=== PATIENT | male | born 1990 | race Caucasian/White ===

== ENCOUNTER → 2016-11-03 | Outpatient (REF) ==
[~2016-11-03] MED LIST: NO HOME MEDICATIONS; PERCOCET 325 MG1 TA2 PO
== END ==
LOC: WSOH 15:30
DX: Z13.9 Encounter for screening, unspecified (principal)

== ENCOUNTER 2018-12-30 05:53 | Emergency (ER) | payer OTHER ==
[~2018-12-30] VITALS: Ht 177.8 cm; Wt 113.6 kg
[2018-12-30 05:58] VITALS: BP 154/102; PULSE 80; TEMP 97.8
== END 2018-12-30 07:28 | disposition home or self-care (01) ==
LOC: COL.ER 05:53
DX: S61.411A Laceration without foreign body of right hand, initial encounter (principal); S43.401A Unspecified sprain of right shoulder joint, initial encounter; Y92.59 Other trade areas as the place of occurrence of the external cause; W00.0XXA Fall on same level due to ice and snow, initial encounter

== ENCOUNTER 2019-01-10 14:47 | Emergency (ER) | payer OTHER ==
[2019-01-10 14:53] VITALS: BP 141/87; PULSE 82; TEMP 98.2
== END 2019-01-10 14:57 | disposition home or self-care (01) ==
LOC: COL.ER 14:47
DX: S61.411D Laceration without foreign body of right hand, subsequent encounter (principal); X58.XXXD Exposure to other specified factors, subsequent encounter

== ENCOUNTER 2019-01-15 02:26 | Emergency (ER) | payer OTHER ==
[~2019-01-15] VITALS: Ht 177.8 cm; Wt 111.4 kg
[2019-01-15 02:28] VITALS: TEMP 98
[2019-01-15] MEDS ORDERED: CLEOCIN HCL300 MG PO (02:53)
[2019-01-15] MEDS ORDERED: NORCO 325 MG-51 TAB PO (02:53)
[2019-01-15 03:12] VITALS: BP 148/105; PULSE 78
== END 2019-01-15 03:31 | disposition home or self-care (01) ==
LOC: COL.ER 02:26
DX: K02.9 Dental caries, unspecified (principal); I10 Essential (primary) hypertension
CPT/HCPCS: J1885

== ENCOUNTER 2019-01-20 08:53 | Emergency (ER) | payer OTHER ==
[~2019-01-20] VITALS: Ht 177.8 cm; Wt 114.2 kg
[~2019-01-20 08:53] MED LIST changes: +CLEOCIN HCL300 MG PO; +NORCO 325 MG-51 TAB PO
[2019-01-20 10:16] VITALS: BP 128/82; PULSE 110; TEMP 97.5
== END 2019-01-20 10:16 | disposition home or self-care (01) ==
LOC: COL.ER 08:53
DX: K29.70 Gastritis, unspecified, without bleeding (principal); F17.210 Nicotine dependence, cigarettes, uncomplicated
CPT/HCPCS: J2405

== ENCOUNTER 2019-08-10 20:08 | Emergency (ER) | payer OTHER ==
[~2019-08-10] VITALS: Ht 177.8 cm; Wt 109.1 kg
[2019-08-10 20:11] VITALS: BP 160/77
[2019-08-10] MEDS ORDERED: TYLENOL 500MG500 MG PO (20:23)
[2019-08-10] MEDS ORDERED: MUCINEX 60600 MG/TA1 PO (20:23)
[2019-08-10 21:37] VITALS: TEMP 97.6
[2019-08-10] MEDS ORDERED: AMOXICILLIN 8751 TAB PO (21:50)
[2019-08-10 22:40] VITALS: PULSE 71
== END 2019-08-10 22:40 | disposition home or self-care (01) ==
LOC: COL.ER 20:08
DX: J06.9 Acute upper respiratory infection, unspecified (principal); H66.91 Otitis media, unspecified, right ear; H10.9 Unspecified conjunctivitis; Z87.891 Personal history of nicotine dependence

== ENCOUNTER 2020-11-02 14:21 | Emergency (ER) | payer OTHER ==
[~2020-11-02] VITALS: Ht 177.8 cm; Wt 109.1 kg
[~2020-11-02 14:21] MED LIST changes: +AMOXICILLIN 8751 TAB PO; +MUCINEX 60600 MG/TA1 PO; +TYLENOL 500MG500 MG PO
[2020-11-02 14:27] VITALS: TEMP 98.3
[2020-11-02 15:46] LABS: COLLECTION METHOD CLEAN CATCH
[2020-11-02 15:52] LABS: BASO # 0.1 (0.0-0.2); BASO % 0.4 % (0.0-2.0); EOS # 0.7 (0.0-0.7); EOS % 5.3 % (0-4.0); GRAN # 8.5 (1.4-6.5); GRAN % 63.5 % (42.2-75.2); HEMATOCRIT 46.5 % (42.0-52.0); LYMPH # 3.2 (1.2-3.4); LYMPH % 23.7 % (20.0-51.0); MEAN CELL VOLUME 86 fl (80.0-100.0); MEAN CORPUSCULAR HEMOGLOBIN 30 pg (27.0-31.0); MEAN CORPUSCULAR HGB CONC 34 g/dl (33.0-37.0); MONO # 0.9 (0.1-0.6); MONO % 6.4 % (1.7-9.3); PLATELET COUNT 300 K/mm3 (130-400); RED BLOOD COUNT 5.39 M/mm3 (4.20-5.60)
[2020-11-02 15:55] LABS: MUCOUS Present /lpf; PH 6 (5-8); SQUAMOUS EPITHELIAL None Seen /hpf; URINE APPEARANCE Clear; URINE BACTERIA None Seen /hpf; URINE BILIRUBIN Negative (NEGATIVE); URINE BLOOD Negative (NEGATIVE); URINE COLOR Yellow; URINE GLUCOSE Negative (NEGATIVE); URINE KETONE Negative (NEGATIVE); URINE LEUKOCYTE ESTERASE Negative (NEGATIVE); URINE NITRATE Negative (NEGATIVE); URINE PROTEIN(semi-quant) Negative (NEGATIVE); URINE RBC 0-2 /hpf; URINE UROBILINOGEN >=4.0 mg/dL (NEGATIVE)
[2020-11-02 16:08] LABS: ALBUMIN 4.5 gm/dL (3.5-5.0); BILIRUBIN,TOTAL 0.5 mg/dL (0.0-1.0); C-REACTIVE PROTEIN 1.8 mg/dL (0.0-0.9); CALCIUM 9.2 mg/dL (8.4-10.2); CREATININE, serum 1.05 (0.66-1.25); POTASSIUM 3.9 mmol/L (3.4-5.0); TOTAL PROTEIN 7.9 gm/dL (6.4-8.2)
[2020-11-02] MEDS ORDERED: NORCO 325 MG-51 TAB PO (17:33)
[2020-11-02 17:50] VITALS: BP 132/67; PULSE 85
== END 2020-11-02 17:50 | disposition home or self-care (01) ==
LOC: COL.ER 14:21
PROVIDERS: Nurse Practitioner
DX: K55.069 Acute infarction of intestine, part and extent unspecified (principal); Z87.891 Personal history of nicotine dependence
CPT/HCPCS: J1170; J1885; J2405; J7030; Q9967